=== PATIENT | female | born 1940 | race Caucasian/White ===

== ENCOUNTER 2022-01-19 17:59 | Emergency (ER) | payer MEDICARE, OTHER, SELFPAY ==
[2022-01-19] VITALS (7 sets, daily range): BP systolic 187–197; BP diastolic 81–82; PULSE 60–68; RESP 9–20; TEMP 36.6; O2SAT 97–98; BMI 23.6
--- NOTE | 2022-01-19 18:20 | DI.RAD.S_ITS ---
PROCEDURE: XR CHEST 1V INDICATIONS: altered mental status TECHNIQUE: One view of the chest was acquired. COMPARISON: None. FINDINGS: Surgical changes and devices: None. Lungs and pleura: Lungs are clear. No pleural effusions or pneumothorax. Mediastinum: Mediastinal contours appear normal. Heart size is normal. The aorta has atherosclerotic calcifications. Bones and chest wall: No suspicious bony lesions. Overlying soft tissues appear unremarkable. IMPRESSION: No acute cardiopulmonary abnormality. Dictated by: Jose Almodovar M.D. on 01/19/2022 at 19:13 Approved by: Jose Almodovar M.D. on 01/19/2022 at 19:14
[2022-01-19 20:10] LABS: Alanine Aminotransferase 45 IU/L (<35); Albumin 4.9 g/dL (3.5-5.0); Albumin Globulin Ratio 1.4 (1.0-2.8); Alkaline Phosphatase 84 U/L (38-126); Aspartate Aminotransferase 35 IU/L (14-36); Bilirubin Total 0.3 mg/dL (0.2-1.3); Blood Urea Nitrogen 6 mg/dL (7-17); Calcium 9.3 mg/dL (8.4-10.2); Carbon Dioxide 25 mmol/L (22-32); Chloride 102 mmol/L (98-107); Estimated Glomerular Filt Rate > 60.0 mL/min (>60); Globulin 3.5 g/dL (1.7-4.1); Glucose 97 mg/dL (80-110); HEMOLYSIS < 15 (0-50); Potassium 4.1 mmol/L (3.4-5.1); Sodium 139 mmol/L (137-145); Total Protein 8.4 g/dL (6.3-8.2)
[2022-01-19 20:16] LABS: Ammonia (NH3) < 9 umol/L (9-30)
[2022-01-19 20:29] LABS: Add Manual Diff / Slide Review NO; Basophils Absolute Auto 100 /uL (0-100); Basophils Percent Auto 0.9 % (0-2); Eosinophils Absolute Auto 200 /uL (0-450); Eosinophils Percent Auto 2.7 % (2-4); Hematocrit 38.3 % (36-46); Lymphocytes Absolute Auto 2000 /uL (1100-4500); Mean Corpuscular HGB Conc 33.9 % (30-36); Mean Corpuscular Volume 91.4 fL (80-100); Monocytes Absolute Auto 500 /uL (0-900); Monocytes Percent Auto 8.5 % (3-14); Neutrophils Absolute Auto 3600 /uL (1500-7000); Neutrophils Percent Auto 56.9 % (50-75); Platelet Count 193 X10^3/uL (150-400); Red Blood Cell Count 4.19 X10^6/uL (4.0-5.2); Red Cell Distribution Width 12.8 % (11.6-14.8); White Blood Cell Count 6.3 X10^3/uL (4.5-11.0)
--- NOTE | 2022-01-19 20:58 | ED.GENADULT ---
HPI - General Adult General Chief complaint: Altered Mental Status Stated complaint: High BP, Hit 210/Dizzy Time Seen by Provider: 01/19/22 20:58 Mode of arrival: Family Vehicle History of Present Illness HPI narrative: Woman with history of hypertension, anxiety and depression presents complaining of general malaise and simply not feeling well with mild confusion. She did report some mild nausea and vomitting that resolved approximately 48 hours ago. She was seen at [facility] 48 hours ago with similar complaints. Workup at that time included CBC, CMP, urinalysis and all was found to be within normal limits. The thought was she had a viral syndrome, she was nontoxic. She was discharged home. Related Data Home Medications Medication Instructions Recorded Confirmed hydroxyzine HCl 25 mg tablet 25 mg PO Q6HR PRN 01/19/22 01/19/22 losartan 50 mg tablet 50 mg PO BID 01/19/22 01/19/22 metoprolol tartrate 50 mg tablet 50 mg PO BID 01/19/22 01/19/22 sertraline 100 mg tablet 100 mg PO DAILY 01/19/22 01/19/22 sucralfate 1 gram tablet See Rx Instructions .ROUTE .COMPLEX 01/19/22 01/19/22 Previous Rx's Medication Instructions Recorded amlodipine 5 mg tablet (Norvasc) 5 mg PO DAILY #30 tab 01/19/22 Allergies Allergy/AdvReac Type Severity Reaction Status Date / Time No Known Drug Allergies Allergy Verified 01/19/22 18:19 Review of Systems Review of Systems Narrative: Remainder of complete review of systems is otherwise unremarkable except for that included in the HPI. Patient History Medical History Hypertension Social History Smoking Status: Never smoker Smoking Status: Never smoker Substance Use Type: does not use Exam Initial Vital Signs Initial Vital Signs: Vital Signs Temperature 97.9 F 01/19/22 18:05 Pulse Rate 64 01/19/22 18:05 Respiratory Rate 16 01/19/22 18:05 Blood Pressure 187/81 H 01/19/22 18:05 Pulse Oximetry 98 01/19/22 18:05 General: Healthy appearing, in no acute distress. Able to give a complete and coherent history. Well-nourished well-developed HEENT: Moist mucous membranes, normal sclera with reactive pupils, Neck: No JVD, supple Respiratory: Lungs are clear to auscultation, no wheezing no rales no rhonchi. Full and symmetrical air movement Cardiac: Regular rate and rhythm no murmurs no bruits Abdomen: Soft, nontender, good bowel tones, no flank pain Skin: Warm and dry, no rashes Neurologic: Grossly neurologically intact with no obvious asymmetries or abnormalities, alert and appropriate Extremities: No trauma, well perfused Psych: Cooperative, appropriate insight and affect Course Orders Ordered: ED Orders 01/19/22 18:20 XR chest 1V Stat EKG-12 Lead Stat 01/19/22 18:25 Ammonia (NH3) Stat 01/19/22 19:46 Complete Blood Count AUTO DIFF Stat Comprehensive Metabolic Panel Stat 01/19/22 21:26 Urine Drug Screen, Rapid Stat 01/19/22 21:27 Urine Microscopic Stat Vital Signs Vital signs: Vital Signs - 8 hr 01/19/22 18:05 01/19/22 20:02 01/19/22 20:30 Temperature 97.9 F Pulse Rate 64 60 61 Respiratory Rate 16 10 L 20 Blood Pressure 187/81 H Pulse Oximetry 98 98 98 01/19/22 20:31 01/19/22 21:00 01/19/22 21:30 Temperature Pulse Rate 60 60 68 Respiratory Rate 11 L 9 L 20 Blood Pressure 188/81 H 197/82 H Pulse Oximetry 98 97 98 01/19/22 21:31 Temperature Pulse Rate 65 Respiratory Rate 19 Blood Pressure 196/82 H Pulse Oximetry 98 Medical Decision Making Medical Records Medical records narrative: Medical records from the emergency room visit of 01/17 at [facility] are reviewed today Lab Data Result diagrams: 01/19/22 19:46 01/19/22 19:46 Labs: Lab Results 01/19/22 01/19/22 01/19/22 Range/Units 18:25 19:46 19:46 WBC 6.3 (4.5-11.0) X10^3/uL RBC 4.19 (4.0-5.2) X10^6/uL Hgb 13.0 (12.0-16.0) g/dL Hct 38.3 (36-46) % MCV 91.4 (80-100) fL MCH 31.0 (26-34) PG MCHC 33.9 (30-36) % RDW 12.8 (11.6-14.8) % Plt Count 193 (150-400) X10^3/uL Neut % (Auto) 56.9 (50-75) % Lymph % (Auto) 31.0 (25-40) % [place] % (Auto) 8.5 (3-14) % Eos % (Auto) 2.7 (2-4) % Baso % (Auto) 0.9 (0-2) % Neut # (Auto) 3600 (1446-6503) /uL Lymph # (Auto) 2000 (3994-7467) /uL [place] # (Auto) 500 (0-900) /uL Eos # (Auto) 200 (0-450) /uL Baso # (Auto) 100 (0-100) /uL Sodium 139 (137-145) mmol/L Potassium 4.1 (3.4-5.1) mmol/L Chloride 102 (98-107) mmol/L Carbon Dioxide 25 (22-32) mmol/L BUN 6 L (7-17) mg/dL Creatinine 0.75 (0.52-1.04) mg/dL Estimated GFR > 60.0 (>60) mL/min BUN/Creatinine Ratio 8.0 (6-22) Glucose 97 (80-110) mg/dL Calcium 9.3 (8.4-10.2) mg/dL Total Bilirubin 0.3 (0.2-1.3) mg/dL AST 35 (14-36) IU/L ALT 45 H (<35) IU/L Alkaline Phosphatase 84 (38-126) U/L Ammonia < 9 L (9-30) umol/L Total Protein 8.4 H (6.3-8.2) g/dL Albumin 4.9 (3.5-5.0) g/dL Globulin 3.5 (1.7-4.1) g/dL Albumin/Globulin Ratio 1.4 (1.0-2.8) Urine Dip Bedside Urine Glucose Negative Bedside Urine Bilirubin - Negative Bedside Urine Ketone - Negative Urine Specific [place] 1.010 Bedside Urine Occult Blood +/- Bedside Urine pH 6.5 Bedside Urine Protein - Negative Bedside Urine Urobilinogen - Negative Bedside Urine Nitrite - Negative Bedside Urine Leukocytes - Negative Esterase Point of care testing: Urine Dip Bedside Urine Glucose Negative Bedside Urine Bilirubin - Negative Bedside Urine Ketone - Negative Urine Specific [place] 1.010 Bedside Urine Occult Blood +/- Bedside Urine pH 6.5 Bedside Urine Protein - Negative Bedside Urine Urobilinogen - Negative Bedside Urine Nitrite - Negative Bedside Urine Leukocytes - Negative Esterase Imaging Data Chest x-ray: Radiologist's Impression: FINDINGS:? ? Surgical changes and devices:? None.? ? Lungs and pleura:? Lungs are clear.? No pleural effusions or pneumothorax.? ? Mediastinum:? Mediastinal contours appear normal.? Heart size is normal.? The aorta has atherosclerotic calcifications. ? Bones and chest wall:? No suspicious bony lesions.? Overlying soft tissues appear unremarkable.? ? IMPRESSION:? No acute cardiopulmonary abnormality. ? ? Dictated by: Jose Almodovar M.D. on 01/19/2022 at 19:13? ?? MDM Narrative Medical decision making narrative: 81-year-old woman with history of hypertension with recent likely viral syndrome with couple of days of vomiting does seem to be improving from of that respect however continues to note the blood pressures have been significantly elevated and has daily readings to document this. Systolics are ranging in the 160-190 range and diastolics in the 80-90 range. She notes that she is simply just feels off and see if there is a fullness in her head. She is not having any overt stroke or acute coronary type symptoms. Current medications are metoprolol tartrate 50 mg twice a day and losartan 50 mg at night. I am going to suggest that to this she add amlodipine 5 mg in the morning and continue to check daily blood pressures. She will schedule an appointment with MATTI godinez to follow-up on blood pressure and medication changes within the next 2 weeks. The patient and her son are both pleased with recommendations and explanations, questions are answered initially for home discharge Discharge Plan Departure Patient Disposition: Home Clinical Impression: Hypertension Instructions: DI for High Blood Pressure Activity Restrictions/Additional Instructions: Thank you for coming in today I suspect that you did have a mild viral syndrome that was causing the vomiting over the last few days. Fortunately your blood work is again very reassuringly normal. I am going to suggest that we add a 3rd blood pressure medication to your current regimen given the consistently elevated blood pressures you have been documenting. I would like you to continue metoprolol 50 mg in the morning and 2 this add the new medication, amlodipine 5 mg daily. Prescription for this was electronically transmitted to [facility] [facility] in [place] I also want you to continue the metoprolol 50 mg at nighttime with the 50 mg of losartan. Please continue to keep track of your blood pressures as you have been doing If you are noticing that you are having chest pain, shortness of breath, difficulty finding words, numbness or tingling AND your blood pressure is significantly elevated it is okay to return to the emergency department. If your blood pressure is elevated that you are not acutely symptomatic, you need to continue taking her medications and follow-up with your outpatient doctor. I wish you the best Prescriptions: New amlodipine [Norvasc] 5 mg tablet 5 mg PO DAILY Qty: 30 1RF No Action losartan 50 mg tablet 50 mg PO BID 0RF Label Comments: TAKE ONE TABLET BY MOUTH TWICE DAILY sucralfate 1 gram tablet See Rx Instructions .ROUTE .COMPLEX 0RF Label Comments: Take 1 tablet by mouth four times a day dissolved in water, drink before meals and bedtime, four times a day Rx Instructions: Take 1 tablet by mouth four times a day dissolved in water, drink before meals and bedtime, four times a day sertraline 100 mg tablet 100 mg PO DAILY 0RF Label Comments: TAKE ONE TABLET BY MOUTH ONE TIME DAILY metoprolol tartrate 50 mg tablet 50 mg PO BID 0RF Label Comments: TAKE ONE TABLET BY MOUTH TWICE DAILY hydroxyzine HCl 25 mg tablet 25 mg PO Q6HR PRN (Reason: Itching) 0RF Label Comments: Take 1 tablet by mouth every six hours as needed For itching Referrals: Nichole Godinez PA-C [Primary Care Provider] -
[2022-01-19] MEDS: AMLODIPINE 5 MG TABLET PO (22:08)
[2022-01-19 23:14] LABS: UR Morphine/Opiate cutoff 300 Negative (Negative); Ur Creatinine 20 (Normal); Urine Amphetamines Negative (Negative); Urine Barbiturates Negative (Negative); Urine Benzodiazepines Negative (Negative); Urine Cocaine Negative (Negative); Urine MDMA Negative (Negative); Urine Methadone Negative (Negative); Urine Methamphetamines Negative (Negative); Urine Oxycodone Negative (Negative); Urine Phencyclidine Negative (Negative); Urine Tetrahydrocannabinol Negative (Negative); Urine Tricyclic Antidepressant Negative (Negative); Urine pH 7 (Normal)
[2022-01-19 23:18] LABS: RBC Urine None Seen (0-5/HPF); Squamous Epithelial Cell Urine 0-1 /HPF (0-5/HPF); WBC Urine None Seen (0-5/HPF)
[2022-01-19 23:19] LABS: Bacteria Urine None Seen; Culture Indicated Urine Cult Not Indicated
== END 2022-01-19 22:10 | disposition home or self-care (01) ==
PROVIDERS: Emergency Provider Emergency Medicine; Family Provider Physician Assistant Medical; PCP Physician Assistant Medical
DX: I10 Essential (primary) hypertension (principal)
CPT/HCPCS: 36415; 71045; 80053; 80305; 81003; 81015; 82140; 85025; 93005; 93010; 99284

== ENCOUNTER → 2022-03-16 07:40 | Outpatient (CLI) | payer MEDICARE, OTHER, SELFPAY ==
--- NOTE | 2022-03-16 | DI.ECHO.S_ITS ---
[place] +---------+ [facility] +---------+ : : [address] : [address] : : : : [id number] : : : : Phone: [phone]+ Echocardiogram Report + + :Name: KENDRA CARSON Study Date: 03/16/2022 Height: 61.5 in: :[facility] ReadingLocation: Weight: 132 lb : : Gender: Female BSA: 1.6 m2 : :: 1940 Age: 81 yrs BP: 157/75 mmHg: :Reason For Study: HYPERTENSION : :Ordering Physician: NEDRA, : :SHIKHA Performed By: Maya Otero : :Referring: SHIKHA SNEED : + + Interpretation Summary The ejection fraction is estimated to be 60-65%. Diastolic parameters suggest probable normal left ventricular diastolic function and normal filling pressures. The right ventricle is normal in size and function. There is mild mitral regurgitation. There is mild tricuspid regurgitation. The right ventricular systolic pressure is estimated to be at least 30 mmHg based on an estimated right atrial pressure of 3 mm Hg. Procedure: A two-dimensional transthoracic echocardiogram with color flow and Doppler was performed. The study quality was technically adequate. There is no prior echocardiogram noted for this patient. The patient was in sinus rhythm with heart rates between 57-65 bpm during the exam. Left Ventricle: The left ventricle is normal in size and wall thickness. The ejection fraction is estimated to be 60-65%. Diastolic parameters suggest probable normal left ventricular diastolic function and normal filling pressures. Right Ventricle: The right ventricle is normal in size and function. Atria: The left atrial size is normal. Right atrial size is normal. There is no Doppler evidence for an interatrial shunt. Mitral Valve: The mitral valve is normal in structure and function. There is mild mitral regurgitation. Aortic Valve: The aortic valve is trileaflet. The aortic valve opens well. There is no aortic valve stenosis. No aortic regurgitation is present. Tricuspid Valve: The tricuspid valve is normal in structure and function. There is mild tricuspid regurgitation. The right ventricular systolic pressure is estimated to be at least 30 mmHg based on an estimated right atrial pressure of 3 mm Hg. Pulmonic Valve: The pulmonic valve leaflets are thin and pliable; valve motion is normal. There is trace pulmonic regurgitation. Great Vessels: The aortic root is normal size. The dimensions of the ascending aorta are normal. The IVC is of normal diameter and collapses greater than 50% with a sniff. This suggests a low right atrial pressure of 3 mm Hg. Pericardium/ Pleura There is no pericardial effusion. There is no pleural effusion. MMode/2D Measurements & Calculations LVIDd: 4.1 cm LVOT diam: 2.0 cm LVIDs: 3.0 cm Ao root diam: 2.9 cm FS: 26.4 % asc Aorta Diam: 3.1 cm IVSd: 0.93 cm Ao Arch Diam (Prox Trans): 2.9 cm LVPWd: 0.58 cm LV garcia. diameter/BSA (cm/m^2): 2.6 LV sys. diameter/BSA (cm/m^2): 1.9 LA A2 area: 17.3 cm2 RA long axis: 4.8 cm LA A4 area: 17.5 cm2 RA area: 13.1 cm2 LA length (vol): 4.9 cm RA vol: 30.4 ml LA vol: 52.8 ml RA : 19.1 ml/m2 LA vol index: 33.1 ml/m2 IVC diam: 1.2 cm RVD1 (basal): 3.1 cm RVD2 (mid): 2.6 cm TAPSE: 2.2 cm Doppler Measurements & Calculations Ao V2 max: 143.8 cm/sec LVOT Max Joe: 103.0 cm/sec Ao V2 mean: 92.4 cm/sec LV V1 max P.2 mmHg Ao max P.3 mmHg LV V1 VTI: 24.5 cm Ao mean P.0 mmHg AG(I,D): 2.4 cm2 Ao V2 VTI: 33.0 cm AG(V,D): 2.3 cm2 sev ratio: 0.74 AG indexed to BSA (cm^2/m^2): 1.5 MV E max joe: 72.5 cm/sec TR max joe: 259.8 cm/sec MV A max joe: 108.8 cm/sec TR max P.0 mmHg MV E/A: 0.67 PA V2 max: 90.7 cm/sec Med Peak E' Joe: 5.7 cm/sec PA V2 mean: 66.0 cm/sec E/E' med: 12.8 PA mean P.9 mmHg Lat Peak E' Joe: 7.7 cm/sec PA pr(Accel): 31.0 mmHg E/E' lat: 9.4 E/e' average: 11.1 MV dec time: 0.28 sec SVLVOT): 78.3 ml Reading Physician:01:37 PM
== END ==
PROVIDERS: Family Provider Physician Assistant Medical; PCP Physician Assistant Medical; Referring Provider Physician Assistant Medical; Visit Provider Physician Assistant Medical
DX: I08.1 Rheumatic disorders of both mitral and tricuspid valves (principal); M62.81 Muscle weakness (generalized); I10 Essential (primary) hypertension
CPT/HCPCS: 93306

== ENCOUNTER 2022-06-22 11:55 | Emergency (ER) | payer MEDICARE, OTHER, SELFPAY ==
[2022-06-22 12:26] VITALS: BP 178/77; PULSE 63; RESP 20; TEMP 36.5; O2SAT 97; BMI 24.1
== END 2022-06-22 15:58 | disposition left against medical advice (07) ==
PROVIDERS: Emergency Provider Emergency Medicine; Family Provider Physician Assistant Medical; PCP Physician Assistant Medical
CPT/HCPCS: 99281

== ENCOUNTER 2023-04-27 15:47 | Emergency (ER) | payer MEDICARE, OTHER, SELFPAY ==
[2023-04-27] VITALS (17 sets, daily range): BP systolic 185–235; BP diastolic 77–100; PULSE 58–75; RESP 10–27; TEMP 36.6; O2SAT 95–99; BMI 26.0
[2023-04-27 16:25] LABS: Alanine Aminotransferase 67 IU/L (<35); Albumin 4.6 g/dL (3.5-5.0); Albumin Globulin Ratio 1.2 (1.0-2.8); Alkaline Phosphatase 117 U/L (38-126); Aspartate Aminotransferase 49 IU/L (14-36); Bilirubin Total 0.6 mg/dL (0.2-1.3); Blood Urea Nitrogen 9 mg/dL (7-17); Calcium 9.6 mg/dL (8.4-10.2); Carbon Dioxide 27 mmol/L (22-32); Chloride 101 mmol/L (98-107); Estimated Glomerular Filt Rate > 60 mL/min (>60); Globulin 3.8 g/dL (1.7-4.1); Glucose 126 mg/dL (80-110); HEMOLYSIS < 15 (0-50); Lipase 63 U/L (23-300); Potassium 4.1 mmol/L (3.4-5.1); Sodium 137 mmol/L (137-145); Total Protein 8.4 g/dL (6.3-8.2)
[2023-04-27 16:43] LABS: Add Manual Diff / Slide Review NO; Basophils Absolute Auto 100 /uL (0-100); Basophils Percent Auto 0.8 % (0-2); Eosinophils Absolute Auto 100 /uL (0-450); Eosinophils Percent Auto 1.7 % (2-4); Hematocrit 37.8 % (36-46); Hemoglobin 13.2 g/dL (12.0-16.0); Lymphocytes Absolute Auto 1400 /uL (1100-4500); Mean Corpuscular Hemoglobin 32.2 PG (26-34); Mean Corpuscular Volume 92.1 fL (80-100); Monocytes Absolute Auto 500 /uL (0-900); Monocytes Percent Auto 6.8 % (3-14); Neutrophils Absolute Auto 5200 /uL (1500-7000); Neutrophils Percent Auto 71.7 % (50-75); Platelet Count 191 X10^3/uL (150-400); Red Cell Distribution Width 12.4 % (11.6-14.8); White Blood Cell Count 7.2 X10^3/uL (4.5-11.0)
[2023-04-27 17:02] LABS: Creatine Kinase 38 U/L (30-135)
[2023-04-27] MEDS: ONDANSETRON 4 MG/2 ML INJ IV (17:07)
[2023-04-27] MEDS: METOPROLOL IR 25 MG TABLET 75 MG PO (17:07)
--- NOTE | 2023-04-27 17:07 | DI.RAD.S_ITS ---
PROCEDURE: XR CHEST 1V INDICATIONS: Flu like symptoms TECHNIQUE: One view of the chest was acquired. COMPARISON: [facility], CR, XR CHEST 1V, 01/19/2022, 18:31. FINDINGS: Surgical changes and devices: None. Lungs and pleura: Lungs are clear. No pleural effusions or pneumothorax. Mediastinum: Mediastinal contours appear normal. Heart size is normal. Bones and chest wall: No suspicious bony lesions. Overlying soft tissues appear unremarkable. IMPRESSION: No acute cardiopulmonary abnormality. Approved by: Daniel Foley M.D. on 04/27/2023 at 17:42
[2023-04-27 17:15] LABS: Troponin I < 0.012 ng/mL (0.01-0.034)
--- NOTE | 2023-04-27 17:22 | DI.CT.S_ITS ---
PROCEDURE: CT HEAD/BRAIN WO CON INDICATIONS: htn, nausea/vomiting TECHNIQUE: Noncontrast 4.5 mm thick angled axial sections acquired from the foramen magnum to the vertex, with coronal and sagittal reformats. For radiation dose reduction, the following was used: automated exposure control, adjustment of mA and/or kV according to patient size. COMPARISON: None. FINDINGS: Image quality: Excellent. CSF spaces: Basal cisterns are patent. No extra-axial fluid collections. The ventricles are symmetric in size and shape. Brain: No acute intracranial hemorrhage or mass effect. There is moderate cerebral volume loss for age, with resultant ventricular and sulcal prominence. There are moderate periventricular and deep white matter chronic small vessel ischemic changes. There is intracranial internal carotid artery atherosclerosis. Skull and face: Calvarium and visualized facial bones appear intact, without suspicious lesions. Sinuses: Visualized sinuses and mastoids are clear. IMPRESSION: 1. No acute intracranial abnormality. 2. Moderate chronic microvascular ischemic changes and generalized parenchymal volume loss. Approved by: Daniel Foley M.D. on 04/27/2023 at 17:33
--- NOTE | 2023-04-27 18:46 | ED_ITS ---
HPI - General Adult General Chief complaint: Hypertension Stated complaint: htn Time Seen by Provider: 04/27/23 18:07 Source: patient, family and EMS Mode of arrival: EMS History of Present Illness HPI narrative: Patient is an 82-year-old female. She does have a history of hypertension. She is not taken any of her blood pressure medications for the past couple days because she is been having generalized abdominal pain and vomiting. The abdominal pain and vomiting occurs every so often. She saw her primary doctor about this the end of last year. According to notes that she brought with her her primary doctor had put in a referral for her to see Gastroenterology but the patient stated that she did not know about this and has not followed up with GI. Her son was at bedside and did not know about this referral as well. There was also information on paperwork showing that they wanted her to start on famotidine but she is not done this. She does have some nausea medication at home. She states she occasionally gets the GI upset. It lasts for approximately 3 days and then resolves. This nausea and abdominal pain has cau sed her to not be able to take her blood pressure medication for the past couple days. She denies chest pain or shortness of breath. She does have a slight headache. Related Data Home Medications Medication Instructions Recorded Confirmed metoprolol tartrate 50 mg tablet 75 mg PO BID 01/19/22 04/27/23 atorvastatin 10 mg tablet 10 mg PO ONCE PM 04/27/23 04/27/23 citalopram 20 mg tablet 10 mg PO DAILY 04/27/23 04/27/23 famotidine 40 mg tablet 40 mg PO BID 04/27/23 04/27/23 sertraline 100 mg tablet 100 mg PO DAILY 04/27/23 04/27/23 Allergies Allergy/AdvReac Type Severity Reaction Status Date / Time erythromycin base Allergy Hives Verified 04/27/23 16:40 Penicillins Allergy Rash Verified 04/27/23 16:40 Sulfa (Sulfonamide Allergy Hives Verified 04/27/23 16:40 Antibiotics) Review of Systems Review of Systems ROS Unobtainable: All systems reviewed & are unremarkable except as noted in HPI and below Patient History Medical History Hypertension Social History Smoking Status: Never smoker Smoking Status: Never smoker alcohol intake frequency: 0-2 drinks per day Substance Use Type: does not use Exam Initial Vital Signs Initial Vital Signs: Vital Signs Pulse Rate 60 04/27/23 16:00 Respiratory Rate 10 L 04/27/23 16:00 Blood Pressure 205/81 H 04/27/23 16:00 Pulse Oximetry 97 04/27/23 16:00 Const General: cooperative, comfortable and No ill appearing HENMT Head: normal to inspection and normocephalic Resp Effort & Inspection: normal respiratory effort Auscultation: clear to auscultation bilaterally Cardio Rate: regular rate Rhythm: regular rhythm GI Inspection: normal to inspection Skin General: no rashes or lesions noted Neuro General: patient alert, patient awake and moves all extremities Speech: speech normal Gait: normal gait Other: Patient is alert to person and place but is a little unsure of the year. Does know what month it is. Extrem General: No edema Course Orders Ordered: ED Orders 04/27/23 15:59 Complete Blood Count AUTO DIFF Stat Comprehensive Metabolic Panel Stat Lipase Stat Troponin & CK Cardiac Panel Stat 04/27/23 16:14 EKG-12 Lead Stat 04/27/23 17:07 XR chest 1V Stat 04/27/23 17:22 CT head/brain wo con Stat Discontinued Medications Metoprolol Tartrate (Metoprolol Ir 25 Mg Tablet) 75 mg PO NOW ONE Stop: 04/27/23 17:00 Last Admin: 04/27/23 17:07 Dose: 75 mg Documented By: ALF Ondansetron HCl (Ondansetron 4 Mg Odt) 4 mg PO NOW PRN PRN Reason: Nausea And Vomiting Ondansetron HCl (Ondansetron 4 Mg/2 Ml Inj) 4 mg IV NOW PRN PRN Reason: Nausea And Vomiting Last Admin: 04/27/23 17:07 Dose: 4 mg Documented By: ALF Vital Signs Vital signs: Vital Signs - 8 hr 04/27/23 16:02 04/27/23 16:00 04/27/23 16:00 Temperature 97.8 F Pulse Rate 62 60 Respiratory Rate 20 10 L Blood Pressure 205/81 H 205/81 H Pulse Oximetry 96 97 Oxygen Delivery Method Room Air 04/27/23 16:15 04/27/23 16:30 04/27/23 16:30 Temperature Pulse Rate 58 L 68 Respiratory Rate 12 12 Blood Pressure 225/100 H Pulse Oximetry 95 97 Oxygen Delivery Method Room Air 04/27/23 16:45 04/27/23 17:00 04/27/23 17:01 Temperature Pulse Rate 61 61 62 Respiratory Rate 10 L 10 L 15 Blood Pressure Pulse Oximetry 99 98 98 Oxygen Delivery Method 04/27/23 17:01 04/27/23 17:15 04/27/23 17:30 Temperature Pulse Rate 60 61 Respiratory Rate 10 L 12 Blood Pressure 221/89 H Pulse Oximetry 99 98 Oxygen Delivery Method Room Air 04/27/23 17:45 04/27/23 17:55 04/27/23 17:55 Temperature Pulse Rate 61 62 Respiratory Rate 14 17 Blood Pressure 235/96 H Pulse Oximetry 98 99 Oxygen Delivery Method 04/27/23 18:00 04/27/23 18:00 04/27/23 18:15 Temperature Pulse Rate 63 63 Respiratory Rate 11 L 12 Blood Pressure 215/100 H Pulse Oximetry 97 98 Oxygen Delivery Method 04/27/23 18:30 04/27/23 18:30 04/27/23 18:45 Temperature Pulse Rate 63 Respiratory Rate 12 Blood Pressure 210/94 H 201/88 H Pulse Oximetry 98 Oxygen Delivery Method Room Air 04/27/23 18:45 04/27/23 19:00 04/27/23 19:29 Temperature Pulse Rate 63 75 65 Respiratory Rate 27 H 13 18 Blood Pressure 185/77 H Pulse Oximetry 99 96 Oxygen Delivery Method Room Air Room Air Medical Decision Making Medical Records Medical records reviewed: Yes I reviewed the patient's medical records. Lab Data Lab results reviewed: Yes I reviewed the patient's lab results. 04/27/23 15:59 04/27/23 15:59 Labs: Lab Results 04/27/23 04/27/23 04/27/23 Range/Units 15:59 15:59 15:59 WBC 7.2 (4.5-11.0) X10^3/uL RBC 4.10 (4.0-5.2) X10^6/uL Hgb 13.2 (12.0-16.0) g/dL Hct 37.8 (36-46) % MCV 92.1 (80-100) fL MCH 32.2 (26-34) PG MCHC 35.0 (30-36) % RDW 12.4 (11.6-14.8) % Plt Count 191 (150-400) X10^3/uL Neut % (Auto) 71.7 (50-75) % Lymph % (Auto) 19.0 L (25-40) % [place] % (Auto) 6.8 (3-14) % Eos % (Auto) 1.7 L (2-4) % Baso % (Auto) 0.8 (0-2) % Neut # (Auto) 5200 (7224-6497) /uL Lymph # (Auto) 1400 (4293-9095) /uL [place] # (Auto) 500 (0-900) /uL Eos # (Auto) 100 (0-450) /uL Baso # (Auto) 100 (0-100) /uL Sodium 137 (137-145) mmol/L Potassium 4.1 (3.4-5.1) mmol/L Chloride 101 (98-107) mmol/L Carbon Dioxide 27 (22-32) mmol/L BUN 9 (7-17) mg/dL Creatinine 0.69 (0.52-1.04) mg/dL Estimated GFR > 60 (>60) mL/min BUN/Creatinine Ratio 13.0 (6-22) Glucose 126 H (80-110) mg/dL Calcium 9.6 (8.4-10.2) mg/dL Total Bilirubin 0.6 (0.2-1.3) mg/dL AST 49 H (14-36) IU/L ALT 67 H (<35) IU/L Alkaline Phosphatase 117 (38-126) U/L Total Creatine Kinase 38 (30-135) U/L Troponin I < 0.012 (0.01-0.034) ng/mL Total Protein 8.4 H (6.3-8.2) g/dL Albumin 4.6 (3.5-5.0) g/dL Globulin 3.8 (1.7-4.1) g/dL Albumin/Globulin Ratio 1.2 (1.0-2.8) Lipase 63 (23-300) U/L Imaging Data Chest x-ray: Radiologist's Impression: PROCEDURE:? XR CHEST 1V ? INDICATIONS:? Flu like symptoms ? TECHNIQUE:? One view of the chest was acquired.? ? COMPARISON:? [facility], CR, XR CHEST 1V, 01/19/2022, 18:31. ? FINDINGS:? ? Surgical changes and devices:? None.? ? Lungs and pleura:? Lungs are clear.? No pleural effusions or pneumothorax.? ? Mediastinum:? Mediastinal contours appear normal.? Heart size is normal.? ? Bones and chest wall:? No suspicious bony lesions.? Overlying soft tissues appear unremarkable.? ? IMPRESSION:? No acute cardiopulmonary abnormality. CT scan - head: Radiologist's Impression: PROCEDURE:? CT HEAD/BRAIN WO CON ? INDICATIONS:? htn, nausea/vomiting ? TECHNIQUE:? Noncontrast 4.5 mm thick angled axial sections acquired from the foramen magnum to the vertex, with coronal and sagittal reformats.? For radiation dose reduction, the following was used:? automated exposure control, adjustment of mA and/or kV according to patient size.? ? COMPARISON:? None. ? FINDINGS:? Image quality:? Excellent.? ? CSF spaces:? Basal cisterns are patent.? No extra-axial fluid collections.? The ventricles are symmetric in size and shape.? ? Brain:? No acute intracranial hemorrhage or mass effect.? There is moderate cerebral volume loss for age, with resultant ventricular and sulcal prominence.? There are moderate periventricular and deep white matter chronic small vessel ischemic changes.? There is intracranial internal carotid artery atherosclerosis.? ? Skull and face:? Calvarium and visualized facial bones appear intact, without suspicious lesions.? ? Sinuses:? Visualized sinuses and mastoids are clear.? ? IMPRESSION:? 1. No acute intracranial abnormality. 2. Moderate chronic microvascular ischemic changes and generalized parenchymal volume loss. ECG Data Attestation: I personally reviewed and interpreted this ECG as follows: Interpretation: Sinus rhythm Ventricular rate is 63 Normal axis Normal QRS Normal QTC No ST T wave changes MDM Narrative Medical decision making narrative: She was given her home dose of medications and she was able to hold this down without any vomiting. The rest of her labs unremarkable. Head CT is unremarkable. Patient does not appear to be having end-organ dysfunction secondary to her hypertension. She is a benign abdominal exam. No indication for further radiologic studies of this today. I went over the discharge paperwork from her last primary doctor visit and we discussed that she should contact the hat forming machine operator for a follow-up. We also discussed staying on the famotidine. She will use the nausea medication as needed. Patient would like to go home. She was given return precautions. She expressed understanding and agreement. Discharge Plan Departure Patient Disposition: Home Clinical Impression: Hypertension, Abdominal pain Instructions: DI for High Blood Pressure Activity Restrictions/Additional Instructions: I do recommend that you continue to take all of your medications as directed. You may need to talk with your primary doctor about a new referral to get in to see the hat forming machine operator. Return to the emergency department for new or worsening symptoms. Prescriptions: No Action atorvastatin 10 mg tablet 10 mg PO ONCE PM famotidine 40 mg tablet 40 mg PO BID sertraline 100 mg tablet 100 mg PO DAILY citalopram 20 mg tablet 10 mg PO DAILY metoprolol tartrate 50 mg tablet 75 mg PO BID Patient Comments: TAKE ONE TABLET BY MOUTH TWICE DAILY Referrals: Nichole Mosquera PA-C [Primary Care Provider] - Stand Alone Forms: Patient Portal/API
== END 2023-04-27 19:30 | disposition home or self-care (01) ==
PROVIDERS: Emergency Medicine; Emergency Provider Emergency Medicine; Family Provider Physician Assistant Medical; PCP Physician Assistant Medical
DX: I10 Essential (primary) hypertension (principal); R10.84 Generalized abdominal pain; R11.2 Nausea with vomiting, unspecified
CPT/HCPCS: 36415; 70450; 71045; 80053; 82550; 83690; 84484; 85025; 93005; 96374; 99284; J2405